=== PATIENT | female | born 1945 | race Caucasian/White ===

== ENCOUNTER 2016-07-30 11:21 | Day surgery (SDC) | payer MEDICARE, OTHER ==
[2016-07-30] VITALS (10 sets, daily range): BP systolic 118–152; BP diastolic 51–78; PULSE 70–74; TEMP 97.6–97.9
[~2016-07-30] VITALS: Ht 149.9 cm; Wt 100.0 kg
[~2016-07-30 11:21] MED LIST: ACTOS 45MG45 MG/TAB PO; ALLOPURINOL100 MG PO; AMBIEN 5MG TABLE5 MG PO; AMBIENPAK5 MG PO; AMIODARONE200 MG PO; ASPIRIN 81M81 MG/TA2 PO; ASPIRIN E.C. 8181 MG PO; ATORVASTATIN PO; BETAPACE 80MG80 MG PO; BYETTA; BYETTA PO; BYETTA SC; BYETTA SQ; CALCIUM 600 PLU1 TAB PO; CALCIUM 600MG+D1 TAB PO; CARDIZEM CD 12120 MG PO; CARDIZEM CD 18180 MG PO; CARDIZEM CD 24240 MG PO; CELEBREX 200MG200 MG PO; CENTRUM SILVER1 TA1 PO; COMPLETE SENIOR1 TA1 PO; COUMADIN PO; COUMADIN4 MG PO; DIGITEK PO; DIGOXIN0.25 MG PO; DILTIAZEM CD180 MG PO; DILTIAZEM180 MG PO; FLONASEALLERGY NS; FORADIL AERO0.012 MG IH; FORADIL IH; FORT1000TA PO; FORTAMET1000 MG PO; FUROSEMIDE PO; FUROSEMIDE20 MG PO; GLUCOPHAGE1000 MG PO; GLUCOSAMINE; GLUCOSAMINE & C1 CA1 PO; GLUCOSAMINE CHO1 CAP PO; GLUCOSAMINE-CHONDROI PO; KLORCON PO; LASIX 20MG TABL20 MG PO; LASIX 40MG TABL40 MG PO; LASIX 80MG TABL80 MG PO; LASIX20 MG PO; LEVAMIR; LEVEMIR100 U/ML SC; LEVEMIR100 U/ML SQ; LEXAPRO 10MG10 MG PO; LEXAPRO10 MG PO; LIPITOR 10MG10 MG PO; LIPITOR20 MG PO; LISINOPRIL PO; LISINOPRIL20 MG PO; LISINOPRIL40 MG PO; LOPRESSOR 225 MG/TAB; LOPRESSOR 225 MG/TAB PO; LOPRESSOR 550 MG/TAB PO; LORAZEPAM1 MG PO; MAG 64 PO; MAG-OX 400400 MG PO; MAG-OX 400400 MG/TAB PO; METFORMIN HCL1000 MG PO; METOPROLOL25 MG PO; METOPROLOL50 MG PO; MULTIVITAMIN FO1 CAP PO; NOVOLOG; NOVOLOG FLEX100 U/ML IV; NOVOLOG FLEX100 U/ML SQ; ONE DAILY1 TA1 PO; OSCAL 500MG/VI500 MG PO; OSCAL W/VIT D250 MG PO; PRINIVIL40 MG PO; RT SPIRIVA18 MCG IH; SEREVENT IH; SINGULAIR 110 MG/TAB PO; SPIRIVA18 MCG IH; STIOLTO RESPIMAT4 GM IH; TIKOSYN0.5 MG PO; TOPROL XL 50MG50 MG PO; TOPROL XL50 MG PO; VICTOZA SQ; VICTOZA6 MG/ML PO; VICTOZA6 MG/ML SC; VICTOZA6 MG/ML SQ; VITAMIN C500 MG PO; VITAMINC500CH PO; WARFARIN SODIU7.5 MG PO; WARFARIN SODIUM1 MG PO; WARFARIN SODIUM5 MG PO; XARELTO20 MG PO; ZESTRIL40 MG PO; ZITHROMAX 250M250 MG PO; ZOLOFT100 MG PO; ZOLPIDEM5 MG PO; ZYLOPRIM 100MG100 MG PO; [UNRECOGNIZED DRUG - OTHER] PO; dexamethasone IH
[2016-07-30 12:51] LABS: HEMATOCRIT 44.1 % (37.0-47.0); HEMOGLOBIN 14.4 g/dl (12.5-16.0); MEAN CELL VOLUME 90 fl (80.0-100.0); MEAN CORPUSCULAR HEMOGLOBIN 29 pg (27.0-31.0); MEAN CORPUSCULAR HGB CONC 33 g/dl (33.0-37.0); MEAN PLATELET VOLUME 9.3 fl (7.4-10.4); PLATELET COUNT 260 K/mm3 (130-400)
[2016-07-30 12:52] LABS: PROTHROMBIN TIME 11.6 SECONDS (9.7-12.8)
[2016-07-30 13:05] LABS: CALCIUM 10.6 mg/dL (8.4-10.2); CREATININE, serum 0.74 mg/dL (0.52-1.25)
[2016-07-30] MEDS ORDERED: ASPIRIN E.C. 8181 MG PO (13:48)
[2016-07-30] MEDS ORDERED: BYDUREON PEN2 MG SQ (13:56)
== END 2016-07-30 17:51 | disposition home or self-care (01) ==
LOC: COL.RAD 11:21
PROVIDERS: Internal Medicine Interventional Cardiology
DX: R94.39 Abnormal result of other cardiovascular function study (principal); R07.9 Chest pain, unspecified; I48.91 Unspecified atrial fibrillation; I10 Essential (primary) hypertension; I87.2 Venous insufficiency (chronic) (peripheral); Z95.0 Presence of cardiac pacemaker; Z79.899 Other long term (current) drug therapy; Z79.84 Long term (current) use of oral hypoglycemic drugs; Z79.4 Long term (current) use of insulin; Z79.01 Long term (current) use of anticoagulants; E11.9 Type 2 diabetes mellitus without complications; G47.33 Obstructive sleep apnea (adult) (pediatric); E78.5 Hyperlipidemia, unspecified; J44.9 Chronic obstructive pulmonary disease, unspecified; Z87.891 Personal history of nicotine dependence
CPT/HCPCS: J2250; J3010; Q9967

== ENCOUNTER → 2017-02-08 | Outpatient (CLI) | payer MEDICARE, OTHER ==
[~2017-02-08] MED LIST changes: +BYDUREON PEN2 MG SQ
== END ==
LOC: MC.RAD 11:09
DX: Z12.31 Encounter for screening mammogram for malignant neoplasm of breast (principal)

== ENCOUNTER → 2018-04-27 | Outpatient (CLI) | payer MEDICARE, OTHER | LOC: MC.RAD 12:42 | DX: Z12.31 Encounter for screening mammogram for malignant neoplasm of breast (principal) ==

== ENCOUNTER → 2019-08-03 | Outpatient (CLI) | payer MEDICARE, OTHER | LOC: MC.RAD 14:39 | DX: Z12.31 Encounter for screening mammogram for malignant neoplasm of breast (principal) ==

== ENCOUNTER 2020-06-09 13:59 | Outpatient (CLI) | payer MEDICARE, OTHER ==
[2020-06-09] VITALS (7 sets, daily range): BP systolic 121–1254; BP diastolic 70–85; PULSE 59–69; TEMP 97.7–98.4
--- NOTE | 2020-06-09 17:09 | NUR ---
PT COMPLETED INFUSION. VSS. NO ADVERSE REACTION NOTED. IV REMOVED. PT ESCORTED TO ER EXIT FOR DISCHARGE.
== END 2020-06-09 17:00 ==
LOC: EUO 13:59
DX: U07.1 COVID-19 (principal)
CPT/HCPCS: J7050

== ENCOUNTER → 2020-09-10 | Outpatient (CLI) | payer MEDICARE, OTHER | LOC: MC.RAD 11:27 | DX: Z12.31 Encounter for screening mammogram for malignant neoplasm of breast (principal) ==

== ENCOUNTER → 2021-10-05 | Outpatient (CLI) | payer MEDICARE, OTHER | LOC: MC.RAD 10:28 | DX: Z12.31 Encounter for screening mammogram for malignant neoplasm of breast (principal) ==

== ENCOUNTER 2022-06-09 15:56 | Inpatient (IN) | payer MEDICARE, OTHER ==
[~2022-06-09] VITALS: Ht 149.9 cm; Wt 106.9 kg
--- NOTE | 2022-06-15 10:10 | NUR ---
PATIENT ADMITTED TO ROOM 308 VIA WHEELCHAIR. HAROON RICHTER UPDATED REGARDING PATIENT'S ARRIVAL. PATIENT IS ALERT AND ORIENTED X4. DENIES PAIN. AWAITING EKG AND LABS PRIOR TO TIKOSYN INITIATION. DENIES FURTHER NEEDS. CALL LIGHT WITHIN REACH.
[2022-06-15 10:11] VITALS: BP 133/67; PULSE 63; TEMP 97.6
[2022-06-15 10:22] LABS: CALCIUM 10.2 mg/dL (8.4-10.2); CREATININE, serum 1.11 mg/dL (0.57-1.11); POTASSIUM 4.6 mmol/L (3.5-4.5)
[2022-06-15 11:06] VITALS: BP 125/63; PULSE 62; TEMP 97.8
[2022-06-15] MEDS ORDERED: ELIQUIS 5MG PO (11:22)
[2022-06-15] MEDS ORDERED: CORDARONE200 MG/TAB PO (11:23)
[2022-06-15] MEDS ORDERED: ENTRESTO 97 MG1 EACH PO (11:23)
[2022-06-15] MEDS ORDERED: SINGULAIR 110 MG/TAB PO (11:24)
[2022-06-15] MEDS ORDERED: BYSTOLIC10 MG PO (11:24)
[2022-06-15] MEDS ORDERED: ALDACTONE 25MG25 M1 PO (11:25)
[2022-06-15] MEDS ORDERED: PHARMASSURE ZIN50 MG PO (11:26)
[2022-06-15] MEDS ORDERED: JARDIANCE10 (11:26)
[2022-06-15] MEDS ORDERED: NEURONTIN100 MG/CAP PO (11:28)
[2022-06-15] MEDS ORDERED: TRELEGY ELLIPT1 EACH IH (11:32)
[2022-06-15] MEDS ORDERED: IPRATROPIUM BROM3 M1 IH (11:33)
[2022-06-15] MEDS ORDERED: NOVOLOG 100U100 U/M1 SQ (11:41)
[2022-06-15] MEDS ORDERED: NATURE'S BLEND600 M2 PO (11:43)
--- NOTE | 2022-06-15 15:24 | NUR ---
TWO HOUR POST TIKOSYN QTC WAS 503. HAROON RICHTER UPDATED, WHO STATES TO CONTINUE WITH CURRENT DOSE OF TIKOSYN AT THIS TIME. PATIENT UP IN CHAIR, DENIES ANY NEEDS AT THIS TIME.
[2022-06-15 15:47] VITALS: BP 95/58; PULSE 60; TEMP 97.4
[2022-06-15 17:16] VITALS: BP 146/73; PULSE 94; TEMP 98.4
[2022-06-15 19:47] VITALS: BP 132/59; PULSE 68; TEMP 97.5
[2022-06-15 23:19] VITALS: BP 118/58; PULSE 68; TEMP 98.2
--- NOTE | 2022-06-16 01:01 | NUR ---
Pt sitting down in recliner for assessment around 2014. A&O x4. R Hand INT is CDI. O2 at 3L per NC. No needs or concerns were expressed. Tele on. NPO at midnight per orders. Tykosin administered at 2028. Around 2200 pt stated feeling ready to go to bed, and requests assistance with her CPAP. Pt repositioned in bed. Belonging and call light are within reach. EKG taken around 2240 with QTC of 460.
[2022-06-16 03:46] VITALS: BP 115/60; PULSE 64; TEMP 97.5
[2022-06-16 07:15] VITALS: BP 118/52; PULSE 69; TEMP 97.9
[2022-06-16 07:29] LABS: CALCIUM 9.8 mg/dL (8.4-10.2); CREATININE, serum 1.02 mg/dL (0.57-1.11); MAGNESIUM 2.3 mg/dL (1.6-2.6); POTASSIUM 4.7 mmol/L (3.5-4.5)
--- NOTE | 2022-06-16 09:35 | NUR ---
SHIFT ASSESSMENT COMPLETED AND MORNING MEDICATIONS ADMINISTERED PER ORDER. PATIENT IS ALERT AND ORIENTED X4. LUNGS CTA. DENIES PAIN. IV TO RIGHT HAND PATENT AND WITH NO SIGNS OF COMPLICATIONS. PATIENT WAS ORIGINALLY SCHEDULED FOR A EFRAIN/CARDIOVERSION TODAY, HOWEVER, PATIENT HAS CONVERTED TO NORMAL SINUS RHYTHM AND THE PROCEDURE HAS BEEN CANCELLED. PATIENT UPDATED REGARDING PLAN OF CARE. HAROON RICHTER INTEROGATED PACEMAKER THIS MORNING. PATIENT DENIES NEEDS AT THIS TIME. CALL LIGHT WITHIN REACH.
--- NOTE | 2022-06-16 10:05 | NUR ---
Initial visit; Patient thanked [employer] Facilitator for looking in on her and offering a special blessing and wishing her well. Sharron and [employer] Fac[employer]ator had a nice visit about patient's jain and its members with whom [employer] Facilitator are acquainted. Patient states she has had a good experience at [facility].
[2022-06-16 11:08] VITALS: BP 108/43; PULSE 66; TEMP 97.4
--- NOTE | 2022-06-16 11:51 | NUR ---
PER RT, TWO HOUR POST TIKOSYN EKG COMPLETED, PHYSICAL COPY PLACED IN CHART. QTC 441. TIKOSYN FLOWSHEET UPDATED.
--- NOTE | 2022-06-16 14:56 | NUR ---
Collection Support Specialist met with patient to discuss discharge planning. Patient's , Claus ([phone]) is at bedside. Patient lives in [place] and sees Dr. Pierson for primary care. Patient obtains medications from [facility] in [place]. Patient has CPAP and oxygen from [facility]. Patient also has a walker at home that she purchased at an auction for $99. Patient reported independence with ADLS and plans to return home at time of discharge. Patient advised her , Axel is DPOA-HC. Discharge Plan: Home
[2022-06-16 15:34] VITALS: BP 118/66; PULSE 61; TEMP 98
--- NOTE | 2022-06-16 17:26 | NUR ---
PATIENT UP IN CHAIR AT THIS TIME. DENIES PAIN. AWAITING EVENING MEAL TO BE DELIVERED. DENIES ANY NEEDS. CALL LIGHT WITHIN REACH.
[2022-06-16 20:23] VITALS: BP 130/62; PULSE 66; TEMP 97.9
--- NOTE | 2022-06-16 22:00 | NUR ---
Scheduled medications given. Shift assessment performed. Patient currently requiring 3L of O2 via nasal cannula, which is patient's basline. Patient is currently resting in bed. VSS. Patient A&O. Call light in reach.
[2022-06-16 23:54] VITALS: BP 123/60; PULSE 62; TEMP 97.7
[2022-06-17 03:18] VITALS: BP 120/58; PULSE 59; TEMP 97.9
--- NOTE | 2022-06-17 05:17 | NUR ---
Patient has had an uneventful night. VSS. Wearing home CPAP. Patient is currently resting in bed, no s/s of pain or discomfort at this time. Call light in reach.
[2022-06-17 06:50] LABS: CALCIUM 9.8 mg/dL (8.4-10.2); CREATININE, serum 0.91 mg/dL (0.57-1.11); MAGNESIUM 2.3 mg/dL (1.6-2.6)
--- NOTE | 2022-06-17 07:29 | NUR ---
Blood glucose reported to be 59. Hypoglycemic protocol initiated. Upon recheck, blood glucose 65. Patient asymptomatic. Will recheck again in 15 min. Oncoming nurse made aware of patient status.
[2022-06-17 07:31] VITALS: BP 114/62; PULSE 61; TEMP 97.4
--- NOTE | 2022-06-17 08:00 | NUR ---
Patient is awake in the chair finishing breakfast. Alert and oriented, with 3L O2 Nasal canula, states she feels ok, no SOB or any othre discomfort. VSS. Assessment completed, no other needs at this time. Call light within reach.
[2022-06-17 11:25] VITALS: BP 118/56; PULSE 62; TEMP 97.5
[2022-06-17] MEDS ORDERED: TIKOSYN0.5 MG PO (14:04)
[2022-06-17 15:39] VITALS: BP 124/53; PULSE 62; TEMP 98.1
--- NOTE | 2022-06-17 19:07 | NUR ---
Patient took his last dose of tykosin, stable, waiting for next EKG and be released to go home. Report given to mariana CULLEN.
--- NOTE | 2022-06-17 20:00 | NUR ---
THE PATIENT EKG SHOWS QTC <500, DISCHARGE HAS BEEN COMPLETED. PT UNDERSTAND DISCHARGE INFORMATION. NO OTHER CONCERNS. THE PATIENT'S IS HERE TO TAKE HER HOME AT THIS TIME.
--- NOTE | 2022-06-17 20:05 | NUR ---
THE PATIENT IS BEING ESCORTED OUT AT THIS TIME.
[2022-06-17 20:09] VITALS: BP 125/57; PULSE 61; TEMP 98.6
== END 2022-06-17 20:05 | disposition home or self-care (01) | DRG 309 ==
LOC: MEDICAL 06-15 09:28
PROVIDERS: Nurse Practitioner; ADMIT Internal Medicine Interventional Cardiology
DX: I48.19 Other persistent atrial fibrillation (principal); I50.32 Chronic diastolic (congestive) heart failure; G47.33 Obstructive sleep apnea (adult) (pediatric); I27.20 Pulmonary hypertension, unspecified; I11.0 Hypertensive heart disease with heart failure; E78.5 Hyperlipidemia, unspecified; E11.649 Type 2 diabetes mellitus with hypoglycemia without coma; F10.90 Alcohol use, unspecified, uncomplicated; J44.9 Chronic obstructive pulmonary disease, unspecified; Z99.81 Dependence on supplemental oxygen; Z95.5 Presence of coronary angioplasty implant and graft; Z95.0 Presence of cardiac pacemaker; Z79.01 Long term (current) use of anticoagulants; Z79.4 Long term (current) use of insulin; Z79.82 Long term (current) use of aspirin; Z23 Encounter for immunization
CPT/HCPCS: A9270; J1815